=== PATIENT | female | born 1975 | race Two or more races ===

== ENCOUNTER → 2023-12-19 17:37 | Outpatient (REF) | payer BC, SELFPAY | LOC: PAVMRI 17:37 | PROVIDERS: ATTENDING PHYSICIAN Physical Medicine & Rehabilitation Pain Medicine | DX: G95.9 Disease of spinal cord, unspecified (principal) | CPT/HCPCS: 72141 ==

== ENCOUNTER → 2023-12-27 13:00 | Outpatient (REF) | payer BC, SELFPAY | LOC: RAD 13:00 | PROVIDERS: ATTENDING PHYSICIAN Surgery Vascular Surgery | DX: I77.9 Disorder of arteries and arterioles, unspecified (principal) | CPT/HCPCS: 93922; 93978 ==

== ENCOUNTER 2024-07-10 17:52 | Emergency (ER) | payer BC, SELFPAY ==
[2024-07-10 17:55] VITALS: BP 106/86
[2024-07-10 18:15] LABS: % Basophils 0.6 % (0-2); % Eosinophils 1.2 % (0-6); % Immature Granulocytes 0.5 % (0-0.5); % Lymphocytes 21.8 % (20.5-51.1); % Monocytes 5.3 % (1.7-9.3); % Neutrophils 70.6 % (42.2-75.2); Absolute Basophils 0.1 10^3/uL (0-0.2); Absolute Eosinophils 0.2 10^3/uL (0-0.7); Absolute Immature Granulocytes 0.1 10^3/uL (0-0.05); Absolute Lymphocytes 2.8 10^3/uL (1.2-3.4); Absolute Monocytes 0.7 10^3/uL (0.1-0.6); Absolute Neutrophils 8.9 10^3/uL (1.4-6.5); Hematocrit 41.5 % (37.0-47.0); Hemoglobin 14.8 g/dL (12.0-16.0); Mean Corp Hgb Conc. 35.7 g/dL (33.0-37.0); Mean Corpuscular Hgb 29.7 pg (27.0-31.0); Mean Corpuscular Volume 83.2 fL (81.0-99.0); Mean Platelet Volume 9.6 fL (7.4-10.4); Nucleated Red Blood Cells % 0 %; Platelet Count 306 10^3/uL (130-400); Red Blood Cell Count 4.99 10^6/uL (4.20-5.40); Red Cell Dist. Width 12.5 % (11.5-14.5); White Blood Cell Count 12.6 10^3/uL (4.8-10.8)
[2024-07-10 18:34] LABS: ALT (SGPT) 26 U/L (0-35); AST (SGOT) 21 U/L (14-36); Albumin 4.8 g/dl (3.5-5.0); Alkaline Phosphatase 85 U/L (38-126); Blood Urea Nitrogen 20 mg/dl (7-17); Calcium 9.7 mg/dl (8.4-10.2); Carbon Dioxide 28 mmol/L (22-30); Chloride 101 mmol/L (98-107); Glucose 128 mg/dl (70-99); Potassium 3.4 mmol/L (3.5-5.1); Sodium 139 mmol/L (135-145); Total Bilirubin 0.8 mg/dl (0.2-1.3); eGFR > 60.00
[2024-07-10 18:35] LABS: Lipase 189 U/L (23-300)
[2024-07-10 20:34] VITALS: BMI 27.9
[2024-07-10 20:38] VITALS: BP 124/65
[2024-07-10 20:43] LABS: Urine Albumin 2+ (Neg - Trace); Urine Bilirubin Negative (Negative); Urine Character Cloudy (Clear); Urine Color Yellow; Urine Glucose Negative (Negative); Urine Ketone Negative (Negative); Urine Leukocyte 3+ (Negative); Urine Nitrite Negative (Negative); Urine Occult Blood 3+ (Negative); Urine Specific Gravity 1.025 (<1.030); Urine Urobilinogen 1+ (Neg - 1+)
[2024-07-10 20:51] LABS: Urine Mucus Few; Urine Squamous Cell 0-2 /LPF (Few)
[2024-07-10 20:55] LABS: Urine Bacteria Few (Negative); Urine White Cell >100 /HPF (0-5)
--- NOTE | 2024-07-10 21:16 | ED.GENMED ---
History of Present Illness
<Claribel Gaffney MD - Last Filed: 07/11/24 02:13>
General
Chief Complaint: Urinary Symptoms
Time Seen by Provider: 07/10/24 20:38
<PAMELA Lr - Last Filed: 07/11/24 13:58>
General
Source: patient
Exam Limitations: none
History of Present Illness
History of Present Illness:
48 y/o female pt with a PMH of hyperlipidemia, May-Thurner syndrome, kidney stones, hematuria, presenting to the emergency room c/o of suprapubic pressure and feeling of urinary retention. Pt states urinary symptoms started 06/27/24, she states she
feels the urge to urinate but after she goes she does not feel like she completely empties her bladder. States she has been passing 'mucus sediments'. She was prompted to come in today after anuresis x 4 hours despite drinking fluids. Pt sees
urologist for hematuria but he relocated and she has not been able to get in with a new provider yet. Denies dysuria, urinary incontinence, hematuria, fever, abdominal pain, N/V/D, chest pain, back pain. No CVA tenderness on exam.
Past History
<PAMELA Lr - Last Filed: 07/11/24 13:58>
Past History
ED Past Medical History: Hypercholesterolemia
ED Past Surgical History: Gynecological (Endometrial ablation, R ovary removed)
Review of Systems
<PAMELA Lr - Last Filed: 07/11/24 13:58>
Review of Systems
Constitutional: Reports no symptoms
Respiratory: Reports no symptoms
Cardiac: Reports no symptoms
ABD/GI: Reports abdominal pain
: Reports frequency, difficulty voiding and urgency
Skin: Reports no symptoms
Phy Exam
<PAMELA Lr - Last Filed: 07/11/24 13:58>
General Physical Exam
General Presentation: well appearing and no apparent distress
General age: appears stated age
General Skin: warm
General Habitus: normal
General Mental: alert
General Hydration: appears well hydrated
Cardiovascular Exam
Cardiovascular Exam: regular rate/rhythm and normal peripheral pulses
Pulmonary Exam
Pulmonary Exam: lungs clear and no respiratory distress
Gastrointestinal Exam
Gastrointestinal Exam: normal bowel sounds, no organomegaly, no pulsatile mass, non distended, no cva tenderness and surgical scar
Palpation: left upper quadrant: No tenderness, left lower quadrant: Minimal tenderness, right upper quadrant: No tenderness and right lower quadrant: No tenderness
Course
<Claribel Gaffney MD - Last Filed: 07/11/24 02:13>
Orders/Labs/Results
Orders:
Orders
07/10/24 18:09
Complete Blood Count/With Diff Urgent
Comprehensive Metabolic Panel Urgent
Lipase Urgent
07/10/24 20:35
HCG, Urine Qualitative Screen Urgent
Date Specimen was Collected: 07/10/24
Time Specimen was Collected: 21:04
Urinalysis Reflex To Culture Urgent
Date Specimen was Collected: 07/10/24
Time Specimen was Collected: 17:53
Urine Microscopic Reflex Cult Urgent
Urine Culture Urgent
DAISY Source: U
Specimen Description:
Date Specimen was Collected: 07/10/24
Time Specimen was Collected: 17:53
07/10/24 20:54
CT Abd/pelvis W Iv Cont Urgent
Comment:
Reason For Exam: abdominal pain
07/10/24 21:05
Test Result ONCE
07/10/24 22:54
Sulfamethox./Trimethoprim Ds [Bactrim Ds 800 mg/160 mg] 1 tablet PO NOW STA
Abnormal Lab Results
07/10/24 07/10/24
18:09 20:35
WBC 12.6 H 10^3/uL
(4.8-10.8)
Abs Immat Gran (auto) 0.1 H 10^3/uL
(0-0.05)
Absolute Neuts (auto) 8.9 H 10^3/uL
(1.4-6.5)
Absolute Monos (auto) 0.7 H 10^3/uL
(0.1-0.6)
Potassium 3.4 L mmol/L
(3.5-5.1)
BUN 20 H mg/dl
(7-17)
Glucose 128 H mg/dl
(70-99)
Ur Occult Blood Reflex 3+ A
(Negative)
Leukocyte Esterase Rfl 3+ A
(Negative)
Urine RBC 3-6 A /HPF
(0-2)
Urine WBC (Reflex) >100 A /HPF
(0-5)
Urine Bacteria (Reflex) Few A
(Negative)
Urine Albumin (Reflex) 2+ A
(Neg - Trace)
07/10/24 18:09
07/10/24 18:09
Vital Signs
Initial and Last Documented VS:
Initial Vital Signs
Temp Pulse Resp BP Pulse Ox
98.1 F 72 18 106/86 97
07/10/24 17:55 07/10/24 17:55 07/10/24 17:55 07/10/24 17:55 07/10/24 17:55
Last Documented Vital Signs
Temp Pulse Resp BP Pulse Ox
98.1 F 67 18 118/67 97
07/10/24 17:55 07/10/24 23:18 07/10/24 23:18 07/10/24 23:18 07/10/24 23:18
<PAMELA Lr - Last Filed: 07/11/24 13:58>
Orders/Labs/Results
Orders:
Orders
07/10/24 18:09
Complete Blood Count/With Diff Urgent
Comprehensive Metabolic Panel Urgent
Lipase Urgent
07/10/24 20:35
HCG, Urine Qualitative Screen Urgent
Date Specimen was Collected: 07/10/24
Time Specimen was Collected: 21:04
Urinalysis Reflex To Culture Urgent
Date Specimen was Collected: 07/10/24
Time Specimen was Collected: 17:53
Urine Microscopic Reflex Cult Urgent
Urine Culture Urgent
DAISY Source: U
Specimen Description:
Date Specimen was Collected: 07/10/24
Time Specimen was Collected: 17:53
07/10/24 20:54
CT Abd/pelvis W Iv Cont Urgent
Comment:
Reason For Exam: abdominal pain
07/10/24 21:05
Test Result ONCE
07/10/24 22:54
Sulfamethox./Trimethoprim Ds [Bactrim Ds 800 mg/160 mg] 1 tablet PO NOW STA
Abnormal Lab Results
07/10/24 07/10/24
18:09 20:35
WBC 12.6 H 10^3/uL
(4.8-10.8)
Abs Immat Gran (auto) 0.1 H 10^3/uL
(0-0.05)
Absolute Neuts (auto) 8.9 H 10^3/uL
(1.4-6.5)
Absolute Monos (auto) 0.7 H 10^3/uL
(0.1-0.6)
Potassium 3.4 L mmol/L
(3.5-5.1)
BUN 20 H mg/dl
(7-17)
Glucose 128 H mg/dl
(70-99)
Ur Occult Blood Reflex 3+ A
(Negative)
Leukocyte Esterase Rfl 3+ A
(Negative)
Urine RBC 3-6 A /HPF
(0-2)
Urine WBC (Reflex) >100 A /HPF
(0-5)
Urine Bacteria (Reflex) Few A
(Negative)
Urine Albumin (Reflex) 2+ A
(Neg - Trace)
07/10/24 18:09
07/10/24 18:09
Vital Signs
Initial and Last Documented VS:
Initial Vital Signs
Temp Pulse Resp BP Pulse Ox
98.1 F 72 18 106/86 97
07/10/24 17:55 07/10/24 17:55 07/10/24 17:55 07/10/24 17:55 07/10/24 17:55
Last Documented Vital Signs
Temp Pulse Resp BP Pulse Ox
98.1 F 67 18 118/67 97
07/10/24 17:55 07/10/24 23:18 07/10/24 23:18 07/10/24 23:18 07/10/24 23:18
<PAMELA Lr - Last Filed: 07/11/24 13:58>
*Critical Care Note
Total Time (30-74mins, 75-104mins- exclusive of procedures): Not Applicable
ED Attending Note
<Claribel Gaffney MD - Last Filed: 07/11/24 02:13>
ED Attending Note
Patient seen and examined by attending physician: Yes
I performed the substantive portion of visit, reviewed & personally made and approve the management plan that is documented in note by myself or ROSETTA.: Yes
ED Attending Note:
I have seen and evaluated the patient with a [id number] encounter. I have spoken to the [PA student] and involved in the medical history, the physical exam, medical decision making.
Evaluation and management service: agree unless noted differently below.
Results interpretation: agree unless noted differently below.
48-year-old woman with history of May Thurner status post iliac artery stenting, clot removed from her aorta not on anticoagulation presenting to the emergency department with urinary problems. Patient states for the past 3 weeks has been having
difficulty urinating that then became urinary urgency. No frequency or dysuria. No fevers chills. She does have hematuria which is chronic. She has had cystoscopy completed by [facility] with no clear etiology. No fevers chills. No nausea
vomiting. No diarrhea. She did have kidney stones many years ago.
GENERAL: in no acute distress
HEENT: normocephalic, extraocular movements intact, moist oral mucosa
NECK: normal inspection
RESPIRATORY: no respiratory distress, clear to auscultation bilaterally
CARDIOVASCULAR: regular rate and rhythm
ABDOMEN/: soft, non-distended, non-tender to palpation, no rebound or guarding
EXTREMITIES: non-tender, no edema/swelling
NEUROLOGIC: awake and alert, moves all extremities
SKIN: warm
48-year-old woman presenting to the emergency department with urinary symptoms for the past 3 weeks. On arrival patient's blood pressure was slightly low but during my evaluation it was in the 120s. Exam shows a well-appearing woman with no
abdominal tenderness. Differential consists of UTI versus kidney stone. Considered intra-abdominal pathology though less likely. Blood work obtained prior to my evaluation does show slight elevation in her white count. Her urine does have blood
and does appear infected. Will obtain CT scan with IV contrast to evaluate for any kidney stones as well as the vasculature given her history. Patient's postvoid residual was 0.
CT scan no kidney stones. Given patient's multiple allergies after shared decision making we will treat with Bactrim as patient has had this before. Patient advised that the urine will be sent for culture and she will receive a call if we have to
adjust her medications. Strict return precautions given. Will discharge at this time.
-
Portions of this chart may have been created with voice recognition software.� Occasional wrong word or��sound alike� substitutions may have occurred due to the inherent limitations of voice recognition software.
Discharge Plan
Departure
Patient Disposition: Home (Routine Discharge)
Date of Disposition: 07/10/24
Time of Disposition: 22:52
Patient with high blood pressure during this ER visit?: No
Discharge Problem:
UTI (urinary tract infection)
Instructions: Urinary Tract Infection, Adult (DC)
Prescriptions:
New
sulfamethoxazole-trimethoprim [Bactrim DS] 800-160 mg tablet
1 tab PO BID 3 Days Qty: 6 0RF
Referrals:
PRIVATE,PHYSICIAN [Family Provider] -
Activity Restrictions/Additional Instructions:
You were seen in the Emergency Department today for urine infection. While you were here we performed blood work, which was reassuring. Please make sure you take the antibiotics as prescribed.
We would like for you to follow up with your primary care physician for further evaluation. If you experience fever, worsening of your symptoms, or develop any other new or concerning symptoms, please return to the Emergency Department immediately.
Please see the attached sheet for additional information.
Interventions
Interventions:
*Risk Screen - Suicide Last Done: 07/10/24 20:37
*General Assessment Last Done: 07/10/24 20:37
*Neglect/Abuse Screening Last Done: 07/10/24 20:37
*ED- Fall Risk Assessment Last Done: 07/10/24 20:37
*ED COVID-19 Vaccine History Last Done: 07/10/24 20:37
*Nursing Disposition Last Done: 07/10/24 23:24
ED-Female Genitourinary Assessment Last Done: 07/10/24 21:11
Discharge Date and Time
Discharge Date/Time: 07/10/24 23:27
Print Language: CZECH
[2024-07-10 21:27] LABS: HCG, Urine Qualitative Screen Negative
[2024-07-10 22:01] VITALS: BP 128/74
[2024-07-10 23:18] VITALS: BP 118/67
[2024-07-10] MEDS: BACTRIM DS 800 MG/160 MG 1 TABLET PO (23:20)
== END 2024-07-10 23:27 | disposition home or self-care (01) ==
LOC: EMR 17:52
PROVIDERS: Student in an Organized Health Care Education/Training Program; EMERGENCY PHYSICIAN Student in an Organized Health Care Education/Training Program
DX: N39.0 Urinary tract infection, site not specified (principal); E78.00 Pure hypercholesterolemia, unspecified
CPT/HCPCS: 99285; 51798; 74177; 80053; 81003; 81015; 81025; 83690; 85025; 87086; Q9967

== ENCOUNTER → 2024-12-25 09:58 | Outpatient (REF) | payer BC, SELFPAY | LOC: DHVS 09:58 | PROVIDERS: ATTENDING PHYSICIAN Surgery Vascular Surgery | DX: Z98.890 Other specified postprocedural states (principal); I77.9 Disorder of arteries and arterioles, unspecified; I65.23 Occlusion and stenosis of bilateral carotid arteries | CPT/HCPCS: 93880; 93922; 93978 ==